=== PATIENT | male | born 1955 | race Caucasian/White ===

== ENCOUNTER 2018-11-30 10:49 | Inpatient (IN) | payer OTHER ==
[2018-11-30] MEDS ORDERED: NS 1,000 ML IV ONE (11:02)
[2018-11-30 11:36] LABS: PLATELET COUNT 199 10^3/uL (150-400)
[2018-11-30 11:46] LABS: INR 0.96 (0.83-1.16); PROTIME(PATIENT) 12.4 SEC (12.0-15.0)
[2018-11-30] MEDS ORDERED: LIDOCAINE 1% 300 MG/30 ML SDV ONE (12:22)
[2018-11-30] MEDS ORDERED: HEPARIN/DEXTROSE 25,000 UNIT/500 ML BAG ONE (12:22)
[2018-11-30] MEDS ORDERED: HEPARIN 10,000 UNIT/10 ML MDV (1,000 UNIT/ML) ONE ×2 (12:23→13:12)
[2018-11-30] MEDS ORDERED: BUPIVACAINE 0.5% 30 ML SDV ONE (12:23)
--- NOTE | 2018-11-30 12:38 | POSTANESTH ---
Post Anesthetic Evaluation Cardiovascular Status: Normal, Stable Respiratory Status: Normal, Stable Level of Consciousness/Mental Status: Can Participate in Eval, Mildly Sleepy, Arousable Pain Control: Adequate, Prn Tx Ordered Nausea/Vomiting Control: Adequate, Prn Tx Ordered Complications Possibly Related to Anesthesia: None Noted
--- NOTE | 2018-11-30 12:41 | PDANEPAE ---
ANE History of Present Illness 63 yo with h/o ablation x2 now for repeat Afib ablation. ANE Past Medical History - Cardiovascular History Hx Arrhythmias: Yes Hx Chest Pain: No Hx CHF / Valvular Disease: No Cardiovascular History Comment: hypercholesterolemia - Pulmonary History Hx COPD: No Hx Asthma/Reactive Airway Disease: No Hx Recent Upper Respiratory Infection: No Hx Oxygen in Use at Home: No Hx Sleep Apnea: Yes Pulmonary History Comment: Uses CPAP at 5 cm H2O, did not bring the unit today. - Endocrine History Hx Diabetes: No Endocrine History Comment: h/o pituitary adenoma s/p resection - GI History GERD: mild ANE Review of Systems Review of Systems: - Systems EENMT: Reports: other (seasonal allergies flaring up currently) ANE Patient History - Allergies Allergies/Adverse Reactions: amoxicillin Allergy (Verified 11/30/18 12:10) GI SUPET Sulfa (Sulfonamide Antibiotics) Allergy (Verified 11/30/18 12:10) GI UPSET - Home Medications Home Medications: Acyclovir [Zovirax 400 mg (*)] 400 mg PO HS 11/30/18 [Last Taken 11/29/18] Diltiazem HCl [Diltiazem ER] 360 mg PO HS 11/30/18 [Last Taken 11/29/18] Herbals/Supplements -Info Only 1 ea PO DAILY 11/30/18 [Last Taken Unknown] Omeprazole 20 mg PO HS 11/30/18 [Last Taken 11/29/18] Simvastatin [Zocor] 10 mg PO HS 11/30/18 [Last Taken 11/29/18] Triazolam 0.125 mg PO HS PRN 11/30/18 [Last Taken 11/29/18] - NPO status NPO Status: no food or drink >8 hours - Anes Hx Hx Anesthesia Complications (with details): post-op hypotension requiring admission - Smoking Hx Smoking Status: Never smoked - Family Anes Hx Family Anes Hx: neg - N/A ANE Labs/Vital Signs - Labs Result Diagrams: 11/30/18 11:20 11/30/18 11:20 - Vital Signs Vital Signs: reviewed preoperatively; see RN documention for details Height: 177.8 cm Weight: 83.007 kg ANE Physical Exam - Airway Neck exam: FROM Mallampati Score: Class 2 Mouth exam: normal dental/mouth exam - Pulmonary Pulmonary: clear to auscultation - Cardiovascular Cardiovascular: irregularly irregular - ASA Status ASA Status: II ANE Anesthesia Plan Anesthesia Plan: general endotracheal anesthesia
--- NOTE | 2018-11-30 13:11 | PDGENHP ---
History & Physical Chief Complaint: persistent atrial fibrillation History of Present Illness: peristent AF. history of prior PVI/CTI ablation, now with recurrent AF Relevant Physical Exam: A+Ox4, RR/NR with occasional ectopy, no MRG, CTAB, no focal deficits Cardiorespiratory Assessment: recurrent AF sp prior ablation -> CLINT and redo AF cahteter ablation
[2018-11-30] MEDS ORDERED: DEXAMETHASONE 4 MG/ML VIAL ONE (13:22)
[2018-11-30] MEDS ORDERED: ROCURONIUM 100 MG/10 ML VIAL ONE (13:22)
[2018-11-30] MEDS ORDERED: fentaNYL 100 MCG/2 ML INJ ONE (13:22)
[2018-11-30] MEDS ORDERED: PROPOFOL/EMULSION 500 MG/50 ML BOTTLE IV ONE (13:22)
[2018-11-30] MEDS ORDERED: ePHEDrine SULFATE 25 MG/5 ML SYR ONE ×2 (15:49→17:37)
[2018-11-30] MEDS ORDERED: ADENOSINE 6 MG/2 ML VIAL ONE (16:08)
[2018-11-30] MEDS ORDERED: PROTAMINE SULFATE 50 MG/5 ML VIAL IVP ONE (16:12)
[2018-11-30] MEDS ORDERED: ROCURONIUM 50 MG/5 ML VIAL ONE (17:13)
[2018-11-30] MEDS ORDERED: GLYCOPYRROLATE 0.2 MG/1 ML VIAL ONE (18:15)
[2018-11-30] MEDS ORDERED: OXYCODONE/APAP 5/325 TAB PO PRN (18:44)
[2018-11-30] MEDS ORDERED: ACETAMINOPHEN 325 MG TAB PO PRN (18:44)
[2018-11-30] MEDS ORDERED: FUROSEMIDE 40 MG/4 ML VIAL IVP ONE (18:46)
[2018-11-30] MEDS ORDERED: TRIAZOLAM 0.25 MG TAB PO PRN (18:56)
--- NOTE | 2018-11-30 19:05 | EPPROC ---
Electrophysiology Procedure Note: Date: 11/30/2018 Labeling Specialist: Travis Davenport MD Procedures: Comprehensive EP study and catheter ablation of atrial fibrillation -04517 Add on linear ablation for left atrial roof flutter and mitral isthmus flutter - 41362 3D electro anatomic mapping -30560 Attempted induction of arrhythmia following drug infusion -81265 Intracardiac echo-[id number] Indications: 63-year-old male with persistent atrial fibrillation, prior ablation for atrial fibrillation with PVI, prior ablation for atrial flutter with CTI (CTI lesion set previously validated the time of PVI ablation). Now with ongoing persistent atrial fibrillation. Techniques: Following informed consent, the patient was brought to the EP lab in a fasting nonsedated state in sinus rhythm with frequent atrial ectopy. General anesthesia was provided by the anesthesiology service. Preprocedure transesophageal echocardiography demonstrated the absence of left atrial appendage thrombus. An esophageal temperature probe was inserted. Bilateral groins were prepped and draped in usual sterile fashion. Under ultrasound guidance, vascular access was obtained x3 in the right femoral vein with placement of 2 8 [place] sheaths and 1 SL 0 sheath. The SL 0 sheath was connected to continuous saline irrigation. Weight based heparin bolus and drip was administered, targeting ACT 350 sec. A Sound Star intracardiac echo catheter was inserted, and used to create a CARTO sound map of the CS ostium, left atrium, left atrial appendage, pulmonary veins, esophagus. A [email or web address] transseptal needle was inserted in the SL 0 sheath, and the system was positioned at the fossa ovalis under ice guidance; the fossa was crossed with RF. The sheath was positioned in the mid LA. A PentaRay multipolar catheter was inserted in the transseptal sheath, and used to create a CARTO substrate map of the left atrium, left atrial appendage, pulmonary veins. All 4 pulmonary veins showed reconnection from the previous PVI procedure, however the sites of reconnection were limited to the posterior aspect of both nikki is , as well as very limited gaps along the anterior aspect of both the left and the right pulmonary veins. The PentaRay was replaced with a Smart Touch SF ablation catheter. RF ablation was performed using 40-50 w power, short duration lesions, at the gaps in the previous lesion set. After completion of the PVI touchup, the PentaRay was reinserted, and entrance and exit block was confirmed in each of the 4 pulmonary veins by pacing from the CS as well as from within each pulmonary vein. Adenosine 6 mg IV x2 was given (once for each set of pulmonary veins), and entrance and exit block was reconfirmed by pacing from within each of the 4 pulmonary veins during adenosine administration. During the procedure, spontaneous atrial fibrillation was observed, which subsequently organized to atrial flutter. Flutter #1 showed a flat CS activation, tachycardia cycle length 215 milliseconds. Activation and entrainment mapping of the left atrium suggested LA roof flutter. RF ablation was performed along the left atrial roof at 40 w power. At the completion of the LA roof lesion set, the activation pattern in the CS was noted to have changed to flutter #2 - this showed CS distal to proximal activation pattern, and tachycardia cycle length 200 25 milliseconds. Activation and entrainment mapping of the left atrium suggested a mitral isthmus dependent flutter at this point. RF ablation was performed at 45 w power, creating an anterior mitral isthmus line from 1:00 a.m. On the mitral isthmus to the right superior pulmonary vein. During RF ablation of the anterior mitral isthmus, the tachycardia was again observed to slow to a cycle length in the 240s millisecond range. Additional activation mapping suggested that the anterior LA roof was the site of origin; a biatrial tachycardia involving Silvina once bundle was dissected. Activation and entrainment mapping of the right atrium showed bystander RA activation. Additional lesions were applied at the anterior LA roof, near the origin of pocket once bundle, but these did not significantly affect the tachycardia. At this stage, the tachycardia was noted to show wobble in the cycle length than the CS activation pattern. Cardioversion was performed at this stage, returning the patient to sinus rhythm. Substrate map of the left atrium suggested complete LA roof and anterior mitral isthmus lines. At this point, the procedure was terminated. Final intracardiac echo survey showed no evidence of pericardial effusion. All catheters were removed. A temporary hemostasis suture was applied to the right groin access site, and all sheaths were removed. Manual pressure was held until hemostasis. The patient tolerated the procedure well. EBL: 30 cc Complications: None Assessment: Successful redo pulmonary vein isolation procedure with touchup of previous PVI lesion set Successful at on ablation of left atrial roof flutter and left atrial mitral isthmus flutter Successful cardioversion of atrial fibrillation Plan: Bedrest 6 hr postprocedure Start Eliquis 5 mg twice daily at the completion of bedrest, continue for at least 3 months post procedure Initiate Tikosyn loading, 500 mcg twice daily, during this hospital stay Omeprazole for 6 weeks after ablation 10 days of right groin precautions
[2018-11-30] MEDS ORDERED: DOFETILIDE 0.5 MG CAP PO SCH (21:00)
[2018-11-30] MEDS: PANTOPRAZOLE SODIUM 40 MG TAB PO SCH (21:15)
[2018-11-30] MEDS: PRAVASTATIN SODIUM 20 MG TAB PO SCH (21:15)
[2018-11-30] MEDS: ACYCLOVIR 400 MG TAB PO SCH (21:15)
[2018-11-30] MEDS: APIXABAN 5 MG TAB PO SCH (23:54)
[2018-12-01 05:08] LABS: PLATELET COUNT 193 10^3/uL (150-400)
[2018-12-01 05:31] LABS: CREATINE KINASE 173 IU/L (0-224)
[2018-12-01] MEDS: DOFETILIDE 0.25 MG CAP PO SCH ×2 (08:59→20:53)
[2018-12-01] MEDS: APIXABAN 5 MG TAB PO SCH ×2 (09:05→20:53)
[2018-12-01] MEDS: PANTOPRAZOLE SODIUM 40 MG TAB PO SCH ×2 (09:05→20:53)
--- NOTE | 2018-12-01 10:33 | ECHO ---
[email or web address] [address] Main: [phone] Echocardiography Examination Transthoracic Name: GERBER NG MR#: [id number] Study Date: 12/01/2018 Study Time: 09:13 AM Date of : 1955 Age: 63 year(s) Height: 177.8 cm (70 in.) Weight: 83.01 kg (183 lb.) BSA: 2.01 m2 Gender: Male Examination: Echo Contrast: Image Quality: Adequate Rhythm: Heart Rate: BP: 118 mmHg/70 mmHg Indication: F/U Post EP Study Procedure Staff Referring Physician: Doughnut Dough Mixer: Suze Graves [facility] Reading Physician: Meenakshi Hurt MD Requesting Provider: Ordering Physician: Rene Davenport MD Indication: F/U Post EP Study Measurements Chambers AV/MV Label Value Normal Value Label Value Normal Value LVOTd 2 cm (1.9cm - 2.1cm) AV PGmax 7 mmHg LVOT VTI 24 cm (18cm - 22cm) AV PGmean 4 mmHg LVDd, 2D 4.7 cm (4.2cm - 5.9cm) AV Vmax 1.33 m/s LVDs, 2D 3.3 cm (2.1cm - 4cm) PHILLIP (VTI) 2.5 cm2 IVSd, 2D 1.1 cm (0.6cm - 1.1cm) MV E Vmax 1 m/s LVPWd, 2D 1.1 cm (0.6cm - 1cm) MV A Vmax 0.5 m/s LVEF, BP 64 % (55% - 70%) MV E/A 2 LVEF, 2D 57 % (54% - 74%) MV E/E' lateral 11.4 LVOT PGmean 2 mmHg MV E/E' septal 10.6 (0.45 - 1.25) LVOT Vmean 0.76 m/s MV DT 232 ms RVDd, 2D 3.8 cm (1.9cm - 3.8cm) MV E' septal 0.09 m/s LA Volume, BP 62 ml (18ml - 58ml) MV VTI 39.8 cm LADs, 2D 3.6 cm (3cm - 4cm) MVA D (continuity eq.) 1.9 cm2 LAESV index, BP 30.8 ml/m2 MV PGmax 4 mmHg RA Area 19.2 cm2 MV PGmean 2 mmHg Additional Vessels MV PHT 0.07 s Label Value Normal Value MVA PHT 3.2 cm2 AoAsc 3.3 cm MV E' lateral 0.09 m/s AoRoot, 2D 2.7 cm (1.4cm - 2.6cm) MV E/E' mean 11.11 Patient: GERBER NG Study Date: 12/01/2018 Page 1 of 3 09:13 AM IVC 1.5 cm (1.2cm - 2.3cm) MV PHT 69 ms MV E' mean 0.09 m/s TV/PV Label Value Normal Value RA Pressure 5 mmHg RVSP 33 mmHg TR Pmax 28 mmHg TR Vmax 2.63 m/s PV PGmax 6 mmHg PV Vmax, Caliper 1.24 m/s (0.6m/s - 0.9m/s) Conclusions 1. The left ventricle is normal in size and systolic function. No regional wall motion abnormalities. Ejection fraction is 64%. Normal wall thickness and normal diastolic function. 2. The right ventricle is normal in size and systolic function. 3. Fgtl-[id number] mitral regurgitation. 4. mild tricuspid regurgitation with normal estimated PA systolic pressure. 5. Patient had a CLINT on 11/30/2018 with overall similar findings Findings Left Ventricle: Left ventricle is normal in size. Normal global systolic left ventricular function. The ejection fraction, measured by Simpsons method, is 64 %. EF range is estimated at 60 % - 65 %. Left ventricle wall thickness is normal. There are no regional wall motion abnormalities. Left ventricular diastolic function parameters are normal. No LV hypertrophy. Right Ventricle: Normal size right ventricle. Right ventricular systolic function is normal. Left Atrium: The left atrium is normal in size. Right Atrium: The right atrium size is at the upper limits of normal. Mitral Valve: Mitral valve appears structurally normal. Mild to moderate mitral regurgitation. No mitral valve stenosis. Aortic Valve: Aortic leaflets are structurally normal. No significant aortic valve regurgitation. There is no aortic stenosis. Tricuspid Valve: Tricuspid valve leaflets are structurally normal. Mild tricuspid regurgitation. No tricuspid valve stenosis. Right Ventricular systolic pressure is measured at 33 mmHg. Pulmonary artery pressure normal. Pulmonic Valve: Pulmonic leaflets are structurally normal. Mild pulmonic valve regurgitation is present. Aorta: The aortic root size in 2D measures 2.7 cm. The ascending aorta measures 3.3 cm. Aorta Measurements AoRoot, 2D is 2.7 cm. IVC: The inferior vena cava is normal in size. Pericardium: No pericardial effusion. No pleural effusion present. Exam Details Procedure Ordered: Echo Procedure Status: Routine study Image Quality: Adequate Patient: GERBER NG Study Date: 12/01/2018 Page 2 of 3 09:13 AM Facility Location: Bedside (No Signature Object) Patient: GERBER NG Study Date: 12/01/2018 Page 3 of 3 09:13 AM [id number]
--- NOTE | 2018-12-01 12:52 | PDCARPN ---
Cardiology Progress Note Chief Complaint: none Assessment/Plan: Assessment: 63-year-old male with persistent atrial fibrillation, status post redo catheter ablation of AFib 11/30/2018. Touchup PVI ablation was performed, as well as addition of left atrial roof and anterior mitral isthmus lines due to LA roof flutter and mitral isthmus flutter. Due to ongoing multiple foci of atrial tachycardia, cardioversion was performed, and Tikosyn loading was initiated. Plan: Continue Eliquis 5 mg twice daily for at least 90 days post ablation Continue omeprazole 20 mg twice daily for 6 weeks post ablation Continue Tikosyn load (now status post 2 doses of Tikosyn, currently at 250 mcg twice daily, QT interval okay) ECG 2 hr after each Tikosyn dose, continuous tele Groin precautions for 10 days Transfer from ICU status to tele today Anticipate discharge tomorrow after a.m. Dose of Tikosyn (this would be his 4th dose) 12/01/18 12:50 Subjective: No acute events overnight. No alarms on tele. After the 1st dose of Tikosyn 500 mcg last night, QT interval when from 460-480 milliseconds. Dose reduced to 250 mcg twice daily this morning, after the morning dose of Tikosyn the QT interval measures in the 440s by my manual assessment. Echo shows no pericardial effusion, no major structural abnormalities. Mr. Rodrigez reports that he is doing well overall. We reviewed the details of the ablation procedure today. Objective: Vital Signs (8 Hrs) Temp Pulse Resp BP Pulse Ox 12/01/18 12:00 37.2 C 63 18 132/71 H 93 12/01/18 11:30 61 19 129/81 H 93 12/01/18 10:00 65 20 131/78 H 94 12/01/18 09:00 59 L 17 118/70 94 12/01/18 08:00 62 14 124/69 H 94 12/01/18 07:00 60 13 122/73 H 97 12/01/18 06:00 67 15 123/77 H 97 12/01/18 05:00 72 15 122/75 H 97 Intake/Output (24 Hrs) 11/30/18 12/01/18 12/02/18 05:59 05:59 05:59 Intake Total 700 Output Total 2100 250 Balance -1400 -250 Intake: Oral (ml) 700 Output: Urine (ml) 2100 250 Urinal 2100 250 Other: Weight 83.007 kg Number of Voids Urinal 2 Number of Stools Urinal 0 1 Result Diagrams: 12/01/18 05:00 12/01/18 05:00 Cardiac Labs: Cardiac Lab Results (72 Hrs) 12/01/18 05:00 Troponin I 1.700 H EKG: see HPI Telemetry: SR, PACs Echocardiogram: no effusion - Physical Exam Constitutional: healthy appearing, no apparent distress Eyes: PERRL, anicteric sclera Cardiovascular: regular rate and rhythm, no murmurs, no rubs, no gallops Peripheral Pulses: 2+: carotid (R), carotid (L), femoral (R) (R femoral vein access site OK), femoral (L), dorsalis-pedis (R), dorsalis-pedis (L) Respiratory: clear to auscultate bilat, no crackles, no wheezes Gastrointestinal: normoactive bowel sounds, no tenderness Skin: no rashes Neurologic: AAOx3, CN II-XII grossly intact Psychiatric: cooperative, interactive, following commands, not anxious ICD10 Worksheet Patient Problems: Problems Problem Status Onset Persistent atrial fibrillation Acute - ICD10 Problem Qualifiers (1) Persistent atrial fibrillation
--- NOTE | 2018-12-01 13:32 | PDMN ---
Medical Necessity Medical necessity: Pt meets inpt criteria per MD order and MCG M-505, Atrial Fibrillation, A-1 day, inpt adm indicated for: initiation or adjustment of antiarrhythmic drug therapy for patient at high risk of adverse effects as indicated by need for treatment with antiarrhythmic drugs that have significant proarrhythmic potential; pt currently undergoing Tikosyn load. 63 y/o w/ persistent afib, s/p redo ablation 11/30/18, touchup PVI ablation as well as ablation of L atrial roof flutter and L atrial mitral isthmus flutter and cardioversion this admission followed by Tikosyn load. Est LOS>2MN for ongoing management of above.
--- NOTE | 2018-12-01 13:39 | ASMTCASEMG ---
Living Arrangements What is your living Answers: With Spouse arrangement? Who do you live with? Type Of Residence What kind of residence do Answers: House you live in? Discharge Plan Comments Coordination Status Comments Notes: Patient is a 63yo male who has persistant AFIB who needs a touchup PVI ablation and addition of left atrial roof and anterior mitral isthmus lines due to LA roof flutter and mitral isthmus flutter. No therapies ordered at this time. Patient will likely d/c independently with outpatient followup. He lives in [place] and has a PCP there. CM available if d/c needs arise. Date Signed: 12/01/2018 01:38 PM Electronically Signed By:Alberta Armenta LCSW
[2018-12-01] MEDS ORDERED: PROTOCOL MAGNESIUM 1 DOSE IV PRN (14:46)
[2018-12-01] MEDS ORDERED: MAGNESIUM SULF 2 GM/WATER 50 ML IV ONE (15:00)
[2018-12-01] MEDS: PRAVASTATIN SODIUM 20 MG TAB PO SCH (20:53)
[2018-12-01] MEDS: ACYCLOVIR 400 MG TAB PO SCH (20:53)
[2018-12-02] MEDS ORDERED: DOFETILIDE 0.25 MG CAP PO SCH
[2018-12-02 08:21] VITALS: BP 163/82
[2018-12-02] MEDS: DOFETILIDE 0.25 MG CAP PO SCH (08:22)
[2018-12-02] MEDS: PANTOPRAZOLE SODIUM 40 MG TAB PO SCH (08:22)
[2018-12-02] MEDS: APIXABAN 5 MG TAB PO SCH (08:22)
--- NOTE | 2018-12-02 12:04 | ASDISCHSUM ---
Discharge Information Plan Status:Home with No Needs Medically Cleared to Leave:12/02/2018 Discharge Date:12/02/2018 CM D/C Disposition:Home, Routine, Self-Care ADT D/C Disposition:Home, Routine, Self-Care Projected Discharge Date:12/02/2018 Transportation at D/C:Family Discharge Delay Reason: Follow-Up Date:12/02/2018 Discharge Slot: Final Diagnosis: Placement Information Patient Contact Information Contact Name:DARRYL Relationship: Address:[address] Work Phone: City:[place] Alternate Phone: State/Zip Code:[place] [address] Email: Financial Information Financial Class:HMO and PPO Plans Primary Plan Desc:[employer] Primary Plan Number:[id number] Secondary Plan Desc: Secondary Plan Number: Assessment Information LACE LACE Length of stay for Answers: 1 day current admission Acuity / Level of Answers: Yes Care: Did the patient have an inpatient admission? # of Emergency department Answers: 0 visits in the last 6 months Score: 4 Date Signed: 12/02/2018 12:02 PM Electronically Signed By:SHIRA Mcdaniel [facility] Initial CM Assessment Living Arrangements What is your living Answers: With Spouse arrangement? Who do you live with? Type Of Residence What kind of residence do Answers: House you live in? Discharge Plan Comments Coordination Status Comments Notes: Patient is a 63yo male who has persistant AFIB who needs a touchup PVI ablation and addition of left atrial roof and anterior mitral isthmus lines due to LA roof flutter and mitral isthmus flutter. No therapies ordered at this time. Patient will likely d/c independently with outpatient followup. He lives in [place] and has a PCP there. CM available if d/c needs arise. Date Signed: 12/01/2018 01:38 PM Electronically Signed By:Alberta Armenta LCSW Case Management Discharge Plan Note Case Management Discharge Discharge Order Complete? Answers: Yes Patient to Obtain Answers: via Family Medications Transportation Arranged Answers: Family/Friends Discharge Comments Notes: Spoke with Rn, pt is being discharged Independently. Will follow-up with providers in [place]. No other CM needs identified at this time. Family to transport. Date Signed: 12/02/2018 12:01 PM Electronically Signed By:SHIRA Mcdaniel Intervention Information
--- NOTE | 2018-12-02 12:48 | GDS ---
[f rep st] DISCHARGE SUMMARY DISCHARGE DIAGNOSES: 1. Paroxysmal atrial fibrillation, status post redo catheter ablation atrial fibrillation ablation o n 11/30/2018. 2. Atrial flutter status post ablation. 3. Atrial tachycardia status post cardioversion and Tikosyn loading. HOSPITAL COURSE: For detailed H and P, please see prior dictation. Briefly, the patient is a 63-year-old male with a history of persistent atrial fibrillation with redo catheter ablation on 11/30/[address] Davenport. At that time, he also had PVI ablation as well as left atrial roof and anterior mitral isthmus lines due to LA roof flutter and mitral isthmus flutter. He had ongoing multiple foci of atrial tachycardia requiring cardioversion and Tikosyn loading. He was initially started on 500 mcg of Tikosyn but developed a long QTc. His dose was reduced to 250 m cg, and his QTc after his 4th dose is within normal limits. The EKG was shown to Dr. Davenport off wh o agreed that the QTc was within normal limits and the patient could be discharged home. PHYSICAL EXAMINATION: GENERAL: Patient appears in no acute distress. VITALS: Blood pressure 163/8 2, heart rate 54, oxygen saturation 95% on room air, afebrile. LUNGS: Clear to auscultation. No wh eezes, rhonchi, or crackles auscultated. CARDIAC: Regular rate and rhythm, without any murmurs, rub s, or gallops appreciated. EXTREMITIES: Right groin where access was obtained for the EP study and ablation is clean and intact without any evidence of infection or hematoma. DISCHARGE MEDICATIONS: He will begin Eliquis 5 mg twice daily, Tikosyn 0.25 mg twice daily and omepr azole 20 mg twice daily. He will continue triazolam, simvastatin, herbal supplement and acyclovir. PLAN: The patient is currently stable and ready for discharge home. He has been given groin precaut ions. He is scheduled to follow up in our office on 12/27 at 11:45 a.m. TIME SPENT: Greater than 30 minutes was spent coordinating the patient's care today. /[id number]/MODL
--- NOTE | 2018-12-04 13:58 | CPEKG ---
Test Reason : OPEN Blood Pressure : / mmHG Vent. Rate : 059 BPM Atrial Rate : 060 BPM P-R Int : 154 ms QRS Dur : 103 ms QT Int : 588 ms P-R-T Axes : 060 038 024 degrees QTc Int : 583 ms Sinus rhythm Abnormal R-wave progression, early transition Borderline T wave abnormalities Prolonged QT interval Confirmed by Darian Frazier ([id number]) on 12/04/2018 1:57:45 PM Referred By: Rene Davenport Confirmed By:Darian Frazier
--- NOTE | 2018-12-04 13:59 | CPEKG ---
Test Reason : OPEN Blood Pressure : / mmHG Vent. Rate : 055 BPM Atrial Rate : 055 BPM P-R Int : 138 ms QRS Dur : 108 ms QT Int : 519 ms P-R-T Axes : 040 048 015 degrees QTc Int : 497 ms Sinus rhythm Abnormal R-wave progression, early transition Borderline prolonged QT interval Confirmed by Darian Frazier ([id number]) on 12/04/2018 1:58:45 PM Referred By: Rene Davenport Confirmed By:Darian Frazier
--- NOTE | 2018-12-04 14:00 | CPEKG ---
Test Reason : OPEN Blood Pressure : / mmHG Vent. Rate : 048 BPM Atrial Rate : 048 BPM P-R Int : 146 ms QRS Dur : 097 ms QT Int : 513 ms P-R-T Axes : 025 054 -07 degrees QTc Int : 459 ms Sinus bradycardia Abnormal R-wave progression, early transition Borderline T abnormalities, inferior leads Confirmed by Darian Frazier ([id number]) on 12/04/2018 1:59:53 PM Referred By: Rene Davenport Confirmed By:Darian Frazier
--- NOTE | 2018-12-04 15:26 | CPEKG ---
Test Reason : OPEN Blood Pressure : / mmHG Vent. Rate : 054 BPM Atrial Rate : 056 BPM P-R Int : 165 ms QRS Dur : 100 ms QT Int : 549 ms P-R-T Axes : 067 057 -77 degrees QTc Int : 521 ms Sinus rhythm Nonspecific T abnormalities, diffuse leads Prolonged QT interval Confirmed by Darian Frazier ([id number]) on 12/04/2018 3:26:08 PM Referred By: Rene Davenport Confirmed By:Darian Frazier
--- NOTE | 2018-12-04 15:37 | CPEKG ---
Test Reason : OPEN Blood Pressure : / mmHG Vent. Rate : 061 BPM Atrial Rate : 061 BPM P-R Int : 164 ms QRS Dur : 105 ms QT Int : 525 ms P-R-T Axes : 071 044 017 degrees QTc Int : 529 ms Sinus rhythm Abnormal R-wave progression, early transition Borderline T wave abnormalities Prolonged QT interval Confirmed by Darian Frazier ([id number]) on 12/04/2018 3:37:12 PM Referred By: Rene Davenport Confirmed By:Darian Frazier
== END 2018-12-02 13:15 | disposition home or self-care (01) | DRG 272 ==
LOC: FCATH 10:49 → F2N 18:40
PROVIDERS: ADMIT Internal Medicine Cardiovascular Disease; ATTEND Internal Medicine Cardiovascular Disease
DX: I48.1 Persistent atrial fibrillation (principal); I48.92 Unspecified atrial flutter; I47.1 Supraventricular tachycardia; E78.5 Hyperlipidemia, unspecified; E03.9 Hypothyroidism, unspecified
CPT/HCPCS: C1730; C1732; C1759; C1893; J0153; J1100; J1644; J1940; J2704; J2720; J3010; J3475